=== PATIENT | female | born 1960 | race African-American/Black ===

== ENCOUNTER 2021-09-18 09:51 | Inpatient (IN) | payer OTHER ==
[~2021-09-18] VITALS: Ht 165.1 cm; Wt 57.4 kg
[2021-09-18] MEDS ORDERED: SODIUM CHLORIDE 0.9% 1,000 ML IV ONE (10:30)
[2021-09-18 10:53] LABS: HEMATOCRIT. 38.2 % (36.0-48.0); HEMOGLOBIN. 12.7 g/dL (12.0-16.0); MEAN CORPUSCULAR HEMOGLOBIN 29.2 pg (28.0-32.0); MEAN CORPUSCULAR VOLUME 88.4 fL (81.0-99.0); MEAN PLATELET VOLUME 8.3 fl (7.4-10.4); PLATELET 286 x1000/uL (130-400); RED BLOOD CELL COUNT 4.33 mill/uL (4.2-5.4); RED CELL DISTRIBUTION WIDTH 14.9 % (11.6-14.6)
[2021-09-18 11:04] LABS: CHLORIDE 110 mEq/L (98-107)
[2021-09-18 11:16] LABS: ETHANOL BLOOD < 10 mg/dL
[2021-09-18 11:57] LABS: PLATELET ESTIMATE NORMAL
[2021-09-18] MEDS ORDERED: HALOPERIDOL LACTATE 5MG/ML VIAL IM NR (12:15)
[2021-09-18] MEDS ORDERED: PIPERACILLIN/TAZ 3.375G PREMIX 50 ML IV NR (12:15)
[2021-09-18 12:48] LABS: CLARITY URINE CLOUDY (CLEAR); COLOR URINE YELLOW (YELLOW); KETONES URINE NEGATIVE (NEGATIVE); LEUKOCYTE ESTERASE URINE NEGATIVE (NEGATIVE); NITRITE URINE NEGATIVE (NEGATIVE); OCCULT BLOOD URINE 3+ (NEGATIVE); PH URINE 5.5 (4.5-8.0); PROTEIN URINE 2+ (NEGATIVE); SPECIFIC GRAVITY URINE 1.018 (1.005-1.030); UROBILINOGEN URINE 0.2 E.U./dL (0.2-1.0)
[2021-09-18] MEDS ORDERED: ASPIRIN 325MG EC TABLET PO NR (13:45)
[2021-09-18 13:46] LABS: *AMPHETAMINES SCREEN URINE NEGATIVE (NEGATIVE); *BARBITURATES SCREEN URINE NEGATIVE (NEGATIVE); *BENZODIAZEPINES SCREEN URINE NEGATIVE (NEGATIVE); *COCAINE SCREEN URINE PRESUMTIVE POSITIVE (NEGATIVE); CANNABINOID URINE SCREEN PRESUMTIVE POSITIVE (NEGATIVE); METHADONE URINE SCREEN NEGATIVE (NEGATIVE); OPIATES URINE SCREEN NEGATIVE (NEGATIVE); PHENCYCLIDINE URINE SCREEN NEGATIVE (NEGATIVE)
[2021-09-18 17:29] VITALS: BP 127/70
[2021-09-18 17:36] VITALS: BP 131/74
[2021-09-18] MEDS ORDERED: CLONIDINE 0.1MG TABLET PO PRN (18:00)
[2021-09-18] MEDS ORDERED: IPRATROPIUM/ALBUTEROL 0.5-3(2.5)MG/3ML NEB HHN PRN (18:00)
[2021-09-18] MEDS ORDERED: ACETAMINOPHEN 325MG TABLET PO PRN ×2 (18:00)
[2021-09-18] MEDS ORDERED: ONDANSETRON HCL 4MG/2ML INJ IV PRN (18:00)
[2021-09-18] MEDS ORDERED: DOCUSATE SODIUM 100MG CAPSULE PO PRN (18:00)
[2021-09-18] MEDS ORDERED: HALOPERIDOL LACTATE 5MG/ML VIAL IM PRN (18:30)
[2021-09-18] MEDS: SODIUM CHLORIDE 0.9% 1,000 ML IV SCH (18:30)
[2021-09-18 19:00] VITALS: BP 125/69
[2021-09-18] MEDS ORDERED: VANCOMYCIN 1500MG in DEXTROSE 5% WATER 250ML IV NR (20:00)
[2021-09-18 20:01] VITALS: BP 159/81
[2021-09-18 21:20] LABS: HEPATITIS B SURFACE ANTIGEN NEGATIVE
[2021-09-18 22:08] VITALS: BP 156/24
[2021-09-18] MEDS: PIPERACILLIN/TAZOBACTAM 3.375 G in DEXTROSE 5% WATER 50 ML IV SCH (22:47)
[2021-09-19] VITALS (12 sets, daily range): BP systolic 105–152; BP diastolic 56–139
[2021-09-19] MEDS: PIPERACILLIN/TAZOBACTAM 3.375 G in DEXTROSE 5% WATER 50 ML IV SCH ×3 (06:45→23:19)
[2021-09-19] MEDS: LORAZEPAM 0.5MG TABLET PO PRN ×3 (07:35→21:50)
[2021-09-19 08:49] LABS: HEMOGLOBIN. 11.1 g/dL (12.0-16.0); MEAN CORPUSCULAR HEMOGLOBIN 28.8 pg (28.0-32.0); MEAN CORPUSCULAR VOLUME 88.2 fL (81.0-99.0); MEAN PLATELET VOLUME 8.5 fl (7.4-10.4); PLATELET 257 x1000/uL (130-400); RED BLOOD CELL COUNT 3.86 mill/uL (4.2-5.4); RED CELL DISTRIBUTION WIDTH 14.5 % (11.6-14.6)
[2021-09-19 09:18] LABS: CHLORIDE 113 mEq/L (98-107)
[2021-09-19] MEDS: SODIUM CHLORIDE 0.9% 1,000 ML IV SCH (11:07)
[2021-09-19] MEDS ORDERED: POTASSIUM CHLORIDE 20MEQ TABLET SR PO SCH (12:00)
[2021-09-19] MEDS ORDERED: IBUP-2029 PO (12:39)
[2021-09-19] MEDS ORDERED: OXCA300T31 PO (12:39)
[2021-09-19] MEDS ORDERED: ARIP30TA17 PO (12:39)
[2021-09-19] MEDS ORDERED: SERT-422 PO (12:39)
[2021-09-19] MEDS ORDERED: DIPH50CA38 PO (12:39)
[2021-09-19] MEDS ORDERED: VANCOMYCIN 750MG PREMIX 150 ML IV SCH (14:00)
[2021-09-19 16:55] LABS: PHOSPHORUS 2.1 mg/dL (2.5-4.9)
[2021-09-19] MEDS ORDERED: NALOXONE HCL 0.4MG/ML VIAL IV PRN (17:15)
[2021-09-19 17:34] LABS: VITAMIN B12 SERUM > 2000.0 pg/mL (211-911)
[2021-09-19 21:45] LABS: PLATELET ESTIMATE NORMAL
[2021-09-20] VITALS (9 sets, daily range): BP systolic 111–146; BP diastolic 62–90
[2021-09-20] MEDS: PIPERACILLIN/TAZOBACTAM 3.375 G in DEXTROSE 5% WATER 50 ML IV SCH ×3 (06:54→22:18)
[2021-09-20] MEDS: SODIUM CHLORIDE 0.9% 1,000 ML IV SCH ×2 (06:55→21:29)
[2021-09-20] MEDS: LORAZEPAM 0.5MG TABLET PO PRN (06:55)
[2021-09-20] MEDS: LORAZEPAM 1MG TABLET PO PRN ×2 (09:49→19:02)
[2021-09-20 10:43] LABS: BASOPHILS % 0.6 % (0.0-2.0); EOSINOPHILS % 1.1 % (0.0-5.0); HEMATOCRIT. 32.4 % (36.0-48.0); HEMOGLOBIN. 10.8 g/dL (12.0-16.0); LYMPHOCYTES % 8.4 % (20.0-50.0); MEAN CORPUSCULAR HEMOGLOBIN 29.2 pg (28.0-32.0); MEAN CORPUSCULAR VOLUME 87.8 fL (81.0-99.0); MEAN PLATELET VOLUME 8.7 fl (7.4-10.4); MONOCYTES % 5.5 % (2.0-8.0); NEUTROPHILS % 84.4 % (40.0-76.0); PLATELET 253 x1000/uL (130-400); RED BLOOD CELL COUNT 3.69 mill/uL (4.2-5.4); RED CELL DISTRIBUTION WIDTH 14.3 % (11.6-14.6)
[2021-09-20 10:51] LABS: CHLORIDE 106 mEq/L (98-107)
[2021-09-20] MEDS ORDERED: LACT10SO7 MT ×2 (11:56)
[2021-09-20] MEDS ORDERED: AMOX1TAB16 MT ×2 (11:56)
[2021-09-20] MEDS ORDERED: POTASSIUM CHLORIDE 20MEQ TABLET SR PO NR (12:15)
[2021-09-20] MEDS: LACTULOSE 20G/30ML UDC PO SCH ×2 (12:53→22:23)
[2021-09-20 14:57] LABS: CREATINE KINASE 2060 IU/L (26-192)
[2021-09-20] MEDS: HALOPERIDOL LACTATE 5MG/ML VIAL IM PRN (17:59)
[2021-09-21] VITALS: BP 146/79
[2021-09-21 02:00] VITALS: BP 144/75
[2021-09-21] MEDS: HALOPERIDOL LACTATE 5MG/ML VIAL IM PRN (02:44)
[2021-09-21 04:00] VITALS: BP 140/48
[2021-09-21 05:32] LABS: CHLORIDE 104 mEq/L (98-107)
[2021-09-21] MEDS: PIPERACILLIN/TAZOBACTAM 3.375 G in DEXTROSE 5% WATER 50 ML IV SCH ×3 (05:42→22:24)
[2021-09-21] MEDS: LACTULOSE 20G/30ML UDC PO SCH ×3 (05:42→22:24)
[2021-09-21 06:00] VITALS: BP 152/74
[2021-09-21 06:10] LABS: BASOPHILS % 0.3 % (0.0-2.0); EOSINOPHILS % 0.7 % (0.0-5.0); HEMOGLOBIN. 11.7 g/dL (12.0-16.0); LYMPHOCYTES % 8.3 % (20.0-50.0); MEAN CORPUSCULAR HEMOGLOBIN 28.5 pg (28.0-32.0); MEAN CORPUSCULAR VOLUME 87.5 fL (81.0-99.0); MEAN PLATELET VOLUME 10.1 fl (7.4-10.4); MONOCYTES % 10.7 % (2.0-8.0); PLATELET 223 x1000/uL (130-400); RED BLOOD CELL COUNT 4.11 mill/uL (4.2-5.4)
[2021-09-21 08:00] VITALS: BP 106/52
[2021-09-21] MEDS: LORAZEPAM 1MG TABLET PO PRN ×2 (08:42→22:24)
[2021-09-21 20:00] VITALS: BP 126/70
[2021-09-21] MEDS: SODIUM CHLORIDE 0.9% 1,000 ML IV SCH (22:23)
[2021-09-22] VITALS: BP 115/56
[2021-09-22] MEDS: HYDROCODONE/ACETAMINOPHEN 5/325MG TABLET PO PRN ×2 (00:33→04:44)
[2021-09-22] MEDS: SODIUM CHLORIDE 0.9% 1,000 ML IV SCH (05:50)
[2021-09-22] MEDS: PIPERACILLIN/TAZOBACTAM 3.375 G in DEXTROSE 5% WATER 50 ML IV SCH (06:00)
[2021-09-22] MEDS: LACTULOSE 20G/30ML UDC PO SCH ×2 (07:49→12:18)
[2021-09-22 08:00] VITALS: BP 101/53
[2021-09-22 12:00] VITALS: BP 102/50
[2021-09-22 16:00] VITALS: BP 82/57
[2021-09-22 17:04] VITALS: BP 82/57
== END 2021-09-22 17:30 | disposition home or self-care (01) | DRG 720 ==
LOC: ER 09:51 → EDBEDREQTM 13:13 → EDBEDREQ 13:13 → EDBEDREQSVC 13:13 → EDBEDREQTM 14:41 → EDBEDREQ 14:41 → ENRESERV 15:25 → 5EST 17:08 → 6EST 09-21 11:54
PROVIDERS: ADMIT Internal Medicine; ATTEND Internal Medicine
DX: A41.9 Sepsis, unspecified organism (principal); G92.9 Unspecified toxic encephalopathy; N17.9 Acute kidney failure, unspecified; K85.90 Acute pancreatitis without necrosis or infection, unspecified; M62.82 Rhabdomyolysis; F19.159 Other psychoactive substance abuse with psychoactive substance-induced psychotic disorder, unspecified; N39.0 Urinary tract infection, site not specified; E87.6 Hypokalemia; K82.8 Other specified diseases of gallbladder; E78.1 Pure hyperglyceridemia; D64.9 Anemia, unspecified; I10 Essential (primary) hypertension; Z20.822 Contact with and (suspected) exposure to COVID-19; D72.825 Bandemia; R74.01 Elevation of levels of liver transaminase levels; R77.8 Other specified abnormalities of plasma proteins; E78.5 Hyperlipidemia, unspecified; F31.9 Bipolar disorder, unspecified; F14.10 Cocaine abuse, uncomplicated; F12.90 Cannabis use, unspecified, uncomplicated; Z78.1 Physical restraint status; T40.5X5A Adverse effect of cocaine, initial encounter
CPT/HCPCS: 36415; 71045; 76700; 80048; 80053; 80061; 80076; 80305; 80320; 81003; 82140; 82150; 82550; 82607; 82746; 83036; 83605; 83735; 83880; 84100; 84145; 84443; 84484; 85025; 86705; 86709; 86803; 87340; 87426; 93005; 93306; 97162; 97166; 97535; 99291; C9803; J1630; J2543; J3370; J7030; J7060; G0480